=== PATIENT | male | born 1960 | race Caucasian/White ===

== ENCOUNTER 2021-01-05 08:52 | Inpatient (IN) | payer BC, OTHER ==
[2021-01-05] VITALS (7 sets, daily range): BP systolic 129–131; BP diastolic 66–77
[~2021-01-05] VITALS: Ht 180.3 cm; Wt 106.1 kg
[2021-01-05] MEDS ORDERED: SODIUM CHLORIDE 0.9% 1000ML 1,000 ML IV STA (09:24)
[2021-01-05] MEDS ORDERED: MORPHINE SULFATE INJ 4 MG/ML INJ 1ML IV STA (09:24)
[2021-01-05] MEDS ORDERED: ONDANSETRON HCL INJ 2MG/ML 2ML 2 MG/ML VIAL IV STA (09:24)
[2021-01-05] MEDS ORDERED: PANTOPRAZOLE 40 MG 10ML VIAL IV STA (09:24)
[2021-01-05 09:37] LABS: BASOPHILS # (AUTO) 0.1 (0.0-0.1); EOSINOPHILS # (AUTO) 0.2 (0.0-0.4); EOSINOPHILS % 2.1 % (0.0-6.0); HEMATOCRIT 46.5 % (38.2-49.6); HEMOGLOBIN 15.2 g/dL (14.0-18.0); LYMPHOCYTES # (AUTO) 2.2 (1.0-3.2); LYMPHOCYTES % 31.1 % (18.0-39.1); MEAN CORPUSCULAR HEMOGLOBIN 31.5 pg (28-32); MEAN CORPUSCULAR HGB CONC 32.7 g/dL (31-35); MEAN CORPUSCULAR VOLUME 96.3 fL (81-99); MONOCYTES # (AUTO) 0.5 (0.2-0.8); MONOCYTES % 7.2 % (4.4-11.3); NEUTROPHILS # (AUTO) 4.1 (2.1-6.9); NEUTROPHILS % 58.5 % (38.7-80.0); PLATELET COUNT 156 x10e3/uL (140-360); RED BLOOD COUNT 4.83 x10e6/uL (4.3-5.7); RED CELL DISTRIBUTION WIDTH 13.5 % (11.7-14.4)
[2021-01-05 09:42] LABS: INR 1.13; PROTHROMBIN TIME 15.2 seconds (11.9-14.5)
[2021-01-05 09:43] LABS: PARTIAL THROMBOPLASTIN TIME 38.3 seconds (23.8-35.5)
[2021-01-05 09:50] LABS: ALANINE AMINOTRANSFERASE 23 IU/L (0-55); ALBUMIN/GLOBULIN RATIO 1.4 (0.8-2.0); ALKALINE PHOSPHATASE 51 IU/L (40-150); ANION GAP 9.9 mmol/L (8-16); BLOOD UREA NITROGEN 14 mg/dL (7-26); BUN/CREATININE RATIO 13 (6-25); CALCIUM 8.4 mg/dL (8.4-10.2); CARBON DIOXIDE 26 mmol/L (22-29); CHLORIDE 112 mmol/L (98-107); CREATINE KINASE 131 IU/L (30-200); CREATININE, SERUM 1.04 mg/dL (0.72-1.25); EST GLOMERULAR FILTRATION RATE > 60 ML/MIN (60-); GLUCOSE 125 mg/dL (74-118); LIPASE 50 U/L (8-78); POTASSIUM 3.9 mmol/L (3.5-5.1); SODIUM 144 mmol/L (136-145)
[2021-01-05] MEDS ORDERED: SODIUM CHLORIDE 0.9% 50ML 50 ML ONE (10:10)
[2021-01-05] MEDS ORDERED: IOPAMIDOL 370 MG/ML 200 ML INFUS..BTL INJ ONE (10:11)
[2021-01-05] MEDS ORDERED: KETOROLAC TROMETHAMINE 30 MG/ML VIAL IV NR (12:00)
[2021-01-05] MEDS ORDERED: HYDROMORPHONE 1MG/1ML INJ IV NR (12:00)
[2021-01-05 12:34] LABS: CLARITY,URINE CLEAR (CLEAR); COLOR,URINE YELLOW (YELLOW)
[2021-01-05 12:35] LABS: KETONES,URINE NEGATIVE (NEGATIVE); LEUKOCYTE ESTERASE ,URINE NEGATIVE (NEGATIVE); NITRITE,URINE NEGATIVE (NEGATIVE); PROTEIN,URINE DIPSTICK NEGATIVE (NEGATIVE); URINE UROBILINOGEN 0.2 mg/dL (0.2 - 1)
[2021-01-05 12:47] LABS: BACTERIA,URINE RARE /HPF; EPITHELIAL CELLS,URINE FEW /LPF; RBC,URINE >50 /HPF (0-5); WBC,URINE (MAN) 21-50 /HPF (0-5)
[2021-01-05] MEDS ORDERED: CEFTRIAXONE SOD 1 GM/50 ML BAG IV SCH (13:15)
[2021-01-05] MEDS ORDERED: HYDROMORPHONE 1MG/1ML INJ IV PRN (13:30)
[2021-01-05] MEDS ORDERED: ONDANSETRON HCL INJ 2MG/ML 2ML 2 MG/ML VIAL IV PRN (13:30)
[2021-01-05] MEDS: SODIUM CHLORIDE 0.9% IV SCH (13:35)
[2021-01-05] MEDS: CEFTRIAXONE SOD IV SCH (13:35)
[2021-01-05] MEDS ORDERED: MONTELUKAST SOD10 MG PO (16:48)
[2021-01-05] MEDS ORDERED: ELIQUIS5 MG PO (16:48)
[2021-01-05] MEDS ORDERED: ASPIRIN81 MG PO (16:48)
[2021-01-05] MEDS ORDERED: ALLOPURINOL300 MG PO (16:48)
[2021-01-05] MEDS ORDERED: TOPAMAX100 MG PO (16:48)
[2021-01-05] MEDS: SODIUM CHLORIDE 0.9% 1000ML 1,000 ML IV SCH ×2 (16:56→23:10)
[2021-01-05 18:23] LABS: CREATINE KINASE MB 1.7 ng/mL (0-5.0)
[2021-01-05] MEDS ORDERED: ATORVASTATIN CA20 MG PO (19:08)
[2021-01-06 00:32] VITALS: BP 121/69
[2021-01-06] MEDS: SODIUM CHLORIDE 0.9% IV SCH (01:30)
[2021-01-06] MEDS: CEFTRIAXONE SOD IV SCH (01:30)
[2021-01-06] MEDS ORDERED: CEFTRIAXONE SOD 1 GM VIAL ONE (02:18)
[2021-01-06] MEDS ORDERED: SODIUM CHLORIDE 0.9% 50ML 50 ML ONE (02:19)
[2021-01-06] MEDS ORDERED: SODIUM CHLORIDE 0.9% 100 ML ONE (02:20)
[2021-01-06 04:00] VITALS: BP 112/64
[2021-01-06 06:04] LABS: BASOPHILS % 0.6 % (0.0-1.0); EOSINOPHILS # (AUTO) 0.1 (0.0-0.4); EOSINOPHILS % 1.8 % (0.0-6.0); HEMATOCRIT 38.6 % (38.2-49.6); HEMOGLOBIN 12.7 g/dL (14.0-18.0); LYMPHOCYTES # (AUTO) 1.6 (1.0-3.2); MEAN CORPUSCULAR HEMOGLOBIN 31.7 pg (28-32); MEAN CORPUSCULAR HGB CONC 32.9 g/dL (31-35); MEAN CORPUSCULAR VOLUME 96.3 fL (81-99); MONOCYTES # (AUTO) 0.5 (0.2-0.8); MONOCYTES % 7.8 % (4.4-11.3); NEUTROPHILS # (AUTO) 4.3 (2.1-6.9); NEUTROPHILS % 65.6 % (38.7-80.0); PLATELET COUNT 125 x10e3/uL (140-360); RED BLOOD COUNT 4.01 x10e6/uL (4.3-5.7); RED CELL DISTRIBUTION WIDTH 13.5 % (11.7-14.4)
[2021-01-06 06:21] LABS: ALANINE AMINOTRANSFERASE 16 IU/L (0-55); ALBUMIN 3.1 g/dL (3.5-5.0); ALBUMIN/GLOBULIN RATIO 1.3 (0.8-2.0); ALKALINE PHOSPHATASE 40 IU/L (40-150); ANION GAP 11.6 mmol/L (8-16); BLOOD UREA NITROGEN 18 mg/dL (7-26); BUN/CREATININE RATIO 18 (6-25); CALCIUM 7.9 mg/dL (8.4-10.2); CARBON DIOXIDE 20 mmol/L (22-29); CHLORIDE 113 mmol/L (98-107); CREATININE, SERUM 1.01 mg/dL (0.72-1.25); EST GLOMERULAR FILTRATION RATE > 60 ML/MIN (60-); GLUCOSE 114 mg/dL (74-118); POTASSIUM 3.6 mmol/L (3.5-5.1); SODIUM 141 mmol/L (136-145)
[2021-01-06 06:45] LABS: CREATINE KINASE MB 1.4 ng/mL (0-5.0)
[2021-01-06] MEDS ORDERED: IOPAMIDOL 300MG/ML 50ML INFUS..BTL IV ONE (07:45)
[2021-01-06 08:04] VITALS: BP 112/64
[2021-01-06 08:43] VITALS: BP 131/80
[2021-01-06 09:00] VITALS: BP 108/58
[2021-01-06] MEDS: SODIUM CHLORIDE 0.9% 1000ML 1,000 ML IV SCH (09:30)
[2021-01-06] MEDS ORDERED: TYLENOL # 31 EA PO (09:51)
[2021-01-06] MEDS ORDERED: KETOROLAC TROMETHAMINE 30 MG/ML VIAL ONE (12:24)
[2021-01-06] MEDS ORDERED: PROPOFOL IV EMULSION 10 MG/ML 20 ML VIAL ONE (12:24)
[2021-01-06] MEDS ORDERED: LIDOCAINE HCL 2% LOCAL INJ 5 ML SDV VIAL INJ ONE (12:24)
[2021-01-06] MEDS ORDERED: ONDANSETRON HCL INJ 2MG/ML 2ML 2 MG/ML VIAL ONE (12:24)
[2021-01-06] MEDS ORDERED: SEVOFLURANE INHAL SOLN 250 ML PEN BTL ONE (12:24)
[2021-01-06] MEDS ORDERED: ROCURONIUM BROMIDE 10 MG/ML 5ML VIAL IV ONE (12:24)
[2021-01-06] MEDS ORDERED: DEXAMETHASONE SOD PHOS INJ 4 MG/ML VIAL ONE (12:24)
[2021-01-06] MEDS ORDERED: FENTANYL CITRATE/PF 100MCG/2 ML INJ ONE (13:03)
[2021-01-06] MEDS ORDERED: MIDAZOLAM HCL 2 MG/2 ML VIAL ONE (13:03)
== END 2021-01-06 11:05 | disposition home or self-care (01) | DRG 659 ==
LOC: ER 09:10 → ERHOLD 13:31 → MED/SURG 16:25
PROVIDERS: ADMIT Internal Medicine; ATTEND Internal Medicine
PROC: 0T768DZ Dilation of Right Ureter with Intraluminal Device, Via Natural or Artificial Opening Endoscopic (ICD-10-PCS; 2021-01-06)
PROC: 0TC68ZZ Extirpation of Matter from Right Ureter, Via Natural or Artificial Opening Endoscopic (ICD-10-PCS; principal; 2021-01-06 07:59)
DX: N13.2 Hydronephrosis with renal and ureteral calculous obstruction (principal); I26.99 Other pulmonary embolism without acute cor pulmonale; F41.9 Anxiety disorder, unspecified; E78.5 Hyperlipidemia, unspecified; Z87.442 Personal history of urinary calculi; K42.9 Umbilical hernia without obstruction or gangrene; Z80.42 Family history of malignant neoplasm of prostate; Z20.822 Contact with and (suspected) exposure to COVID-19
CPT/HCPCS: 36415; 71045; 74177; 74420; 80053; 81001; 82550; 82553; 83690; 83735; 84484; 85025; 85610; 85730; 87086; 88300; 99284; C1758; C2617; J0696; J1100; J1170; J1885; J2001; J2250; J2270; J2405; J3010; J7030; J7050; Q9967; U0002

== ENCOUNTER 2025-07-13 02:31 | Emergency (ER) | payer BC, MEDICARE ==
[~2025-07-13] VITALS: Ht 182.9 cm; Wt 107.0 kg
[~2025-07-13 02:31] MED LIST: ALLOPURINOL300 MG PO; ASPIRIN81 MG PO; ATORVASTATIN CA20 MG PO; ELIQUIS5 MG PO; MONTELUKAST SOD10 MG PO; TOPAMAX100 MG PO; TYLENOL # 31 EA PO
[2025-07-13] MEDS: KETOROLAC TROMETHAMINE 30 MG/ML VIAL IV STA (03:47)
[2025-07-13] MEDS: SODIUM CHLORIDE 0.9% 1000ML 1,000 ML IV ONE (03:47)
[2025-07-13] MEDS: ONDANSETRON HCL INJ 2MG/ML 2ML 2 MG/ML VIAL IV STA (03:47)
[2025-07-13] MEDS ORDERED: Morphine 4mg INJECTION 4 MG/ML INJ IV PRN (04:15)
[2025-07-13] MEDS ORDERED: ONDANSETRON HCL INJ 2MG/ML 2ML 2 MG/ML VIAL IV PRN (04:15)
[2025-07-13 06:04] VITALS: PULSE 58; RESP 16; TEMP 97.6
[2025-07-13 06:11] VITALS: BP 135/70; PULSE 58; RESP 16; TEMP 97.6; O2SAT 97
[2025-07-13] MEDS ORDERED: ACETAMINOPHEN-1 EAC4 PO (06:18)
== END 2025-07-13 06:21 | disposition home or self-care (01) ==
LOC: FSED 02:51
DX: N50.811 Right testicular pain (principal); K80.20 Calculus of gallbladder without cholecystitis without obstruction; N13.2 Hydronephrosis with renal and ureteral calculous obstruction; I25.10 Atherosclerotic heart disease of native coronary artery without angina pectoris; Z86.718 Personal history of other venous thrombosis and embolism
CPT/HCPCS: 74176; 80048; 80076; 81003; 85025; 96374; 96375; 99284; J1885; J2405; J7030